=== PATIENT | male | born 1970 | race Caucasian/White ===

== ENCOUNTER 2021-09-03 16:31 | Emergency (ER) | payer OTHER ==
[2021-09-03 16:51] VITALS: BP 144/75; PULSE 68; RESP 20; TEMP 98.1
[2021-09-03] MEDS ORDERED: KETOROLAC 15 MG/ML 1 ML VIAL IM STA (17:37)
[2021-09-03] MEDS ORDERED: ORPHENADRINE 30 MG/ML 2 ML VIAL IM STA (17:37)
--- NOTE | 2021-09-03 17:40 | ED ---
Back Pain HPI - General Chief Complaint: Back Pain/Injury Stated Complaint: back pain Time Seen by Provider: 09/03/21 17:30 Source: patient, family, RN notes reviewed, old records reviewed Limitations: no limitations - History of Present Illness Initial Comments: 50-year-old male presents to the emergency room with complaints of low back pain. Patient states that he was working in the house painting throughout the week and states that he started to feel tightness in his back. Today he started only working on smaller feedings and was screaming knobs into cabinets when he w ent to get up he was unable to stand related to the pain. Patient states he is now unable to get comfortable. He states that the pain is in his back and radiates into his groin bilaterally. Denies any testicular pain. He states he has had back pain in the past but nothing to this extent. No previous back surgeries. No fevers. MD Complaint: back pain -: days(s) (1) Place: home Radiation: groin (bilateral) Severity scale (1-10): 10 Quality: sharp, stabbing Consistency: constant Improves With: none Worsens With: movement Associated Symptoms: denies other symptoms Treatments Prior to Arrival: cold therapy - Related Data Previous Rx's Medication Instructions Recorded Cyclobenzaprine [Flexeril] 10 mg PO TID PRN #15 tab 09/03/21 Ibuprofen [Motrin] 800 mg PO Q6HR #30 tab 09/03/21 Lidocaine 5% Patch [Lidoderm] 1 each TP DAILY 20 Days #20 patch 09/03/21 Allergies Allergy/AdvReac Type Severity Reaction Status Date / Time Penicillins Allergy Anaphylaxis Verified 09/03/21 16:51 Review of Systems ROS Statement: Those systems with pertinent positive or pertinent negative responses have been documented in the HPI. ROS Other: All systems not noted in ROS Statement are negative. Past Medical History Past Surgical History: Adenoidectomy, Ear Surgery, Hernia Repair, Tonsillectomy Past Psychological History: No Psychological Hx Reported Smoking Status: Never smoker Past Alcohol Use History: Occasional Past Drug Use History: None Reported General Exam Limitations: no limitations General appearance: alert, in no apparent distress Head exam: Present: atraumatic Eye exam: Present: normal appearance. Absent: scleral icterus, conjunctival injection Neck exam: Absent: tenderness, meningismus Respiratory exam: Absent: respiratory distress, accessory muscle use Cardiovascular Exam: Present: regular rate Back exam: Present: normal inspection, tenderness (LS spine), muscle spasm, paraspinal tenderness, vertebral tenderness (Lumbar sacral spine). Absent: CVA tenderness (R), CVA tenderness (L), rash noted Expanded Back exam: Absent: saddle anesthesia Back exam: Negative Straight Leg Raising: Left, Right Neurological exam: Present: alert, oriented X3 Psychiatric exam: Present: normal affect, normal mood Skin exam: Present: warm, dry, normal color. Absent: cyanosis, diaphoretic Course Vital Signs 09/03/21 16:46 Temperature 98.1 F Pulse Rate 68 Respiratory 20 Rate Blood Pressure 144/75 O2 Sat by Pulse 99 Oximetry Medical Decision Making - Medical Decision Making Patient presents with low back pain worsening over the week from doing home remodeling. Patient states was sitting on the floor doing some work when the back pain became severe and was unable to get up on his own. He has no complaints of sciatica. No bowel or bladder incontinence. He has no medical history and takes Motrin only as needed. There are no red flag symptoms. Patient was given a shot of Toradol and Norflex. He was also given Lidoderm patch in the emergency room. 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 X-rays of LS spine are negative for any acute fractures. This is likely musculoskeletal back strain. Patient is able to stand and take a couple of steps at discharge. Instructed to return to the emergency room with any new or concerning symptoms in. He is agreeable to this plan of care. Case discussed with Dr. Orr Disposition Clinical Impression: Back pain Disposition: HOME SELF-CARE Condition: Good Instructions (If sedation given, give patient instructions): Acute Low Back Pain (ED), Lower Back Exercises (ED) Additional Instructions: Continue your daily activities using pain as a limiting factor. When you start feeling better you can participate in back exercises. Tylenol and Motrin as needed for any inflammation or pain. You can also take Flexeril as prescribed for muscle relaxant. Do not drink alcohol, drive or operate heavy machinery when taking this medication. I have also prescribed Lidoderm patches that you can use for pain topically. Back pain may take several weeks to resolve completely. Follow-up with the primary care doctor next week. Return to the emergency room with any new or concerning symptoms including bowel or bladder incontinence, fevers or inability to ambulate. Prescriptions: Cyclobenzaprine [Flexeril] 10 mg PO TID PRN #15 tab PRN Reason: Muscle Spasm Lidocaine 5% Patch [Lidoderm] 1 each TP DAILY 20 Days #20 patch Ibuprofen [Motrin] 800 mg PO Q6HR #30 tab Is patient prescribed a controlled substance at d/c from ED?: No Referrals: Juma Tello MD [Primary Care Provider] - 1-2 days Time of Disposition: 19:19
[2021-09-03] MEDS ORDERED: LIDOCAINE 5% PATCH TOPICAL SCH (17:45)
[2021-09-03] MEDS ORDERED: ACET/COD 300 MG/30 MG STARTER PACK 6 TAB BTL PO STA (19:19)
--- NOTE | 2021-09-03 20:29 | XR ---
EXAMINATION TYPE: XR lumbar spine 2 or 3V DATE OF EXAM: 09/03/2021 7:11 PM INDICATION: Patient age:Male; 50 years old; Reason for study: pain; COMPARISON: None TECHNIQUE: Frontal, lateral and coned in L5-S1 lateral views of the spine. FINDINGS: No evidence of any acute osseous pathology. No evidence of loss of vertebral body height i s seen. There is normal alignment of the lumbar vertebral bodies. Mild multilevel disc degeneration c hanges throughout the visualized spine with endplate spurring and mild disc space loss. IMPRESSION: 1. No acute process. 2. Scattered mild multilevel disc degeneration.
== END 2021-09-03 19:43 | disposition home or self-care (01) ==
LOC: EC 16:31
DX: M54.50 Low back pain, unspecified (principal); Z88.0 Allergy status to penicillin
CPT/HCPCS: 72100; 99283; 96372; J2360; J1885